=== PATIENT | female | born 1995 | race Caucasian/White ===

== ENCOUNTER 2025-03-03 08:00 | Emergency (ER) | payer MEDICAID ==
[~2025-03-03] VITALS: Ht 147.3 cm; Wt 50.0 kg
[2025-03-03 08:05] VITALS: TEMP 98.4
[2025-03-03] MEDS ORDERED: ASPI-1 PO (08:17)
[2025-03-03 08:37] LABS: COVID AG,FIA SOURCE NASAL SWAB
[2025-03-03 09:07] LABS: INFLUENZA TYPE A NEGATIVE FOR TYPE A (NEGATIVE); INFLUENZA TYPE B NEGATIVE FOR TYPE B (NEGATIVE); SARS-COV2 (COVID) ANTIGEN,FIA Negative (Negative)
[2025-03-03 10:45] VITALS: BP 120/82; PULSE 90; RESP 18; O2SAT 96
[2025-03-03] MEDS: OXYMETAZOLINE HCL 0.05% 15 ML NASAL SPRAY NASAL ONE (10:59)
== END 2025-03-03 11:06 | disposition home or self-care (01) ==
LOC: EMS 08:00
DX: J06.9 Acute upper respiratory infection, unspecified (principal); I10 Essential (primary) hypertension; Z79.82 Long term (current) use of aspirin; Z79.899 Other long term (current) drug therapy; Z20.822 Contact with and (suspected) exposure to COVID-19
CPT/HCPCS: 87804; 99283